=== PATIENT | female | born 1965 ===

== ENCOUNTER 2019-09-01 18:05 | Emergency (ER) | payer OTHER ==
[~2019-09-01] VITALS: Ht 172.7 cm; Wt 79.8 kg
== END 2019-09-01 21:28 | disposition home or self-care (01) ==
LOC: ER 18:05
DX: R11.2 Nausea with vomiting, unspecified (principal)

== ENCOUNTER 2021-01-16 08:50 | Emergency (ER) | payer OTHER ==
[~2021-01-16] VITALS: Ht 172.7 cm; Wt 77.1 kg
[2021-01-16] MEDS ORDERED: PREDNISONE 5MG PO (09:00)
[2021-01-16] MEDS ORDERED: XARELTO10 M1 PO (09:00)
[2021-01-16] MEDS ORDERED: PLAQUENIL PO (09:01)
== END 2021-01-16 10:38 | disposition home or self-care (01) ==
LOC: ER 08:50
DX: S60.051A Contusion of right little finger without damage to nail, initial encounter (principal); W21.05XA Struck by basketball, initial encounter; Y93.67 Activity, basketball; Y92.89 Other specified places as the place of occurrence of the external cause; Y99.8 Other external cause status

== ENCOUNTER 2021-01-22 07:47 | Outpatient (CLI) | payer OTHER ==
[~2021-01-22 07:47] MED LIST: PLAQUENIL PO; PREDNISONE 5MG PO; XARELTO10 M1 PO
== END 2021-01-22 08:07 | disposition home or self-care (01) ==
LOC: RAD 07:47
PROVIDERS: ATTEND Orthopaedic Surgery
DX: S63.432A Traumatic rupture of volar plate of right middle finger at metacarpophalangeal and interphalangeal joint, initial encounter (principal)